=== PATIENT | male | born 2000 | race Caucasian/White ===

== ENCOUNTER 2023-08-21 08:54 | Emergency (ER) | payer OTHER, SELFPAY ==
[2023-08-21 09:06] VITALS: BP 139/83; PULSE 86; RESP 18; TEMP 36.7; O2SAT 99; BMI 29.0
[2023-08-21 09:43] LABS: Add Manual Diff / Slide Review NO; Basophils Absolute Auto 100 /uL (0-100); Basophils Percent Auto 1.1 % (0-2); Eosinophils Absolute Auto 400 /uL (0-450); Eosinophils Percent Auto 4.7 % (2-4); Hematocrit 44.9 % (41-53); Hemoglobin 15.3 g/dL (13.5-17.5); Lymphocytes Absolute Auto 3000 /uL (1100-4500); Lymphocytes Percent Auto 31.9 % (25-40); Mean Corpuscular Hemoglobin 30.8 PG (26-34); Mean Corpuscular Volume 90.5 fL (80-100); Monocytes Absolute Auto 600 /uL (0-900); Monocytes Percent Auto 6.3 % (3-14); Neutrophils Absolute Auto 5300 /uL (1500-7000); Platelet Count 324 X10^3/uL (150-400); Red Blood Cell Count 4.96 X10^6/uL (4.5-5.9); Red Cell Distribution Width 13.2 % (11.6-14.8); White Blood Cell Count 9.4 X10^3/uL (4.5-11.0)
[2023-08-21 09:46] LABS: UR Morphine/Opiate cutoff 300 Negative (Negative); Ur Creatinine Normal (Normal); Ur Specific Gravity Normal (Normal); Urine Amphetamines Negative (Negative); Urine Barbiturates Negative (Negative); Urine Benzodiazepines Negative (Negative); Urine Cocaine Negative (Negative); Urine MDMA Negative (Negative); Urine Methadone Negative (Negative); Urine Methamphetamines Negative (Negative); Urine Oxycodone Negative (Negative); Urine Phencyclidine Negative (Negative); Urine Tetrahydrocannabinol Negative (Negative); Urine Tricyclic Antidepressant Negative (Negative); Urine pH Normal (Normal)
[2023-08-21 09:50] LABS: Acetaminophen < 10 ug/mL (10-30); Alanine Aminotransferase 26 IU/L (<50); Albumin 4.7 g/dL (3.5-5.0); Albumin Globulin Ratio 1.3 (1.0-2.8); Alkaline Phosphatase 92 U/L (38-126); Aspartate Aminotransferase 28 IU/L (17-59); BUN Creatinine Ratio 14.5 (6-22); Bilirubin Total 0.7 mg/dL (0.2-1.3); Blood Urea Nitrogen 12 mg/dL (9-20); Calcium 9.1 mg/dL (8.4-10.2); Carbon Dioxide 28 mmol/L (22-32); Chloride 104 mmol/L (98-107); Estimated Glomerular Filt Rate > 60 mL/min (>60); Ethanol (ETOH) < 10 mg/dL; Globulin 3.6 g/dL (1.7-4.1); Glucose 107 mg/dL (70-100); HEMOLYSIS < 15 (0-50); Potassium 3.7 mmol/L (3.4-5.1); Salicylate < 1.0 mg/dL (<20); Sodium 139 mmol/L (137-145); Total Protein 8.3 g/dL (6.3-8.2)
--- NOTE | 2023-08-21 10:01 | ED_ITS ---
HPI - Psych General Chief Complaint: Psychiatric Symptoms Stated Complaint: SI Time Seen by Provider: 08/21/23 09:24 Source: patient Mode of arrival: Family Vehicle Limitations: no limitations History of Present Illness HPI Narrative: Patient is a 23-year-old male. A prior diagnosis of ADD. Takes no medications. Does not see a counselor. Does not see a therapist. Denies any alcohol use. Denies any illicit substances use. 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 Stationed at [employer] [facility]. This is his 1st duty station. Lives in the [facility]. Is here in the emergency department with his chief for evaluation of suicidal ideation. Patient states he has been dealing with off and on suicidal ideation for several months. States he was never talked with anyone about it. Has never acted on anything. States last evening the thoughts became more intense. He can not give a specific reason why this happened. He [place] the [place] crisis line. He was doing this through text. He did make comments about wanting to go out [place] the [place] and shoot himself. He does have a gun. He states he was researching the type of bullet that he should use to do this. He states he would never do it in the [facility] because he did not want to cause any distress to his roommate. While he was in contact with the crisis line the [place] police department arrived and stayed with him until his command came and picked him up and brought him here in the emergency department. He has never been admitted to the hospital in the past for these thoughts. He states that he currently is not suicidal but does state that these thoughts do seem to come and go. He was worried about having to be at work in a couple hours. Related Data Allergies Allergy/AdvReac Type Severity Reaction Status Date / Time No Known Drug Allergies Allergy Verified 08/21/23 09:06 Review of Systems Review of Systems Narrative: See HPI Patient History Social History Smoking Status: Current every day smoker Smoking Status: Current every day smoker tobacco type: vaping alcohol intake frequency: 0-2 drinks per day Alcohol type: beer Substance Use Type: does not use Exam Initial Vital Signs Initial Vital Signs: Vital Signs Temperature 98.0 F 08/21/23 09:06 Pulse Rate 86 08/21/23 09:06 Respiratory Rate 18 08/21/23 09:06 Blood Pressure 139/83 08/21/23 09:06 Pulse Oximetry 99 08/21/23 09:06 Oxygen Delivery Method Room Air 08/21/23 09:06 Const General: cooperative, comfortable and No ill appearing HENMT Head: normal to inspection and normocephalic Resp Effort & Inspection: normal respiratory effort Auscultation: clear to auscultation bilaterally Cardio Rate: regular rate Rhythm: regular rhythm GI Inspection: normal to inspection Neuro General: patient alert, patient awake and moves all extremities Extrem General: capillary refill normal Psych Other: Patient was calm and cooperative. Is not suicidal currently but did have very strong thoughts last evening. He states they do come on and off without much warning. He did have a plan last evening. He does have access to guns. Course Orders Ordered: ED Orders 08/21/23 09:17 Consult to [facility] - [facility] Lister Stat 08/21/23 09:27 Urine Drug Screen, Rapid Stat 08/21/23 09:30 Acetaminophen Stat Complete Blood Count AUTO DIFF Stat Comprehensive Metabolic Panel Stat Ethanol (ETOH) Stat Free T4, Direct Thyroxine Stat Salicylate Stat Thyroid Stimulating Hormone Stat 08/21/23 11:40 COVID19 -Nasal RAPID Stat Discontinued Medications Nicotine (Nicotine 14 Patch) 14 mg TOP NOW ONE Stop: 08/21/23 13:25 Last Admin: 08/21/23 13:34 Dose: 14 mg Documented By: FLOYD Vital Signs Vital signs: Vital Signs - 8 hr 08/21/23 09:06 08/21/23 14:25 Temperature 98.0 F Pulse Rate 86 78 Respiratory Rate 18 14 Blood Pressure 139/83 130/71 Pulse Oximetry 99 98 Oxygen Delivery Method Room Air MDM - Psych Lab Data 08/21/23 09:30 08/21/23 09:30 Labs: Lab Results 08/21/23 08/21/23 08/21/23 Range/Units 09:27 09:30 11:40 WBC 9.4 (4.5-11.0) X10^3/uL RBC 4.96 (4.5-5.9) X10^6/uL Hgb 15.3 (13.5-17.5) g/dL Hct 44.9 (41-53) % MCV 90.5 (80-100) fL MCH 30.8 (26-34) PG MCHC 34.0 (30-36) % RDW 13.2 (11.6-14.8) % Plt Count 324 (150-400) X10^3/uL Neut % (Auto) 56.0 (50-75) % Lymph % (Auto) 31.9 (25-40) % [place] % (Auto) 6.3 (3-14) % Eos % (Auto) 4.7 H (2-4) % Baso % (Auto) 1.1 (0-2) % Neut # (Auto) 5300 (2540-6590) /uL Lymph # (Auto) 3000 (9249-1479) /uL [place] # (Auto) 600 (0-900) /uL Eos # (Auto) 400 (0-450) /uL Baso # (Auto) 100 (0-100) /uL Sodium 139 (137-145) mmol/L Potassium 3.7 (3.4-5.1) mmol/L Chloride 104 (98-107) mmol/L Carbon Dioxide 28 (22-32) mmol/L BUN 12 (9-20) mg/dL Creatinine 0.83 (0.66-1.25) mg/dL Estimated GFR > 60 (>60) mL/min BUN/Creatinine Ratio 14.5 (6-22) Glucose 107 H (70-100) mg/dL Calcium 9.1 (8.4-10.2) mg/dL Total Bilirubin 0.7 (0.2-1.3) mg/dL AST 28 (17-59) IU/L ALT 26 (<50) IU/L Alkaline Phosphatase 92 (38-126) U/L Total Protein 8.3 H (6.3-8.2) g/dL Albumin 4.7 (3.5-5.0) g/dL Globulin 3.6 (1.7-4.1) g/dL Albumin/Globulin Ratio 1.3 (1.0-2.8) TSH 3.54 (0.47-4.68) uIU/mL Free T4 1.20 (0.78-2.19) ng/dL Salicylates < 1.0 (<20) mg/dL U Opiates 300ng/mL cut Negative (Negative) Ur Oxycodone Screen Negative (Negative) Urine Methadone Screen Negative (Negative) Acetaminophen < 10 (10-30) ug/mL Ur Barbiturates Screen Negative (Negative) U Tricyclic Antidepress Negative (Negative) Ur Phencyclidine Scrn Negative (Negative) Ur Amphetamines Screen Negative (Negative) U Methamphetamines Scrn Negative (Negative) Ur MDMA Scrn (Ecstasy) Negative (Negative) U Benzodiazepines Scrn Negative (Negative) Urine Cocaine Screen Negative (Negative) U Marijuana (THC) Screen Negative (Negative) Urine pH Normal (Normal) Urine Specific [place] Normal (Normal) Ethyl Alcohol < 10 ( - 10) mg/dL Ur Creatinine Normal (Normal) SARS-CoV-2 (PCR) Negative (Negative) Urine Dip Bedside Urine Glucose Negative Bedside Urine Bilirubin - Negative Bedside Urine Ketone - Negative Urine Specific [place] 1.020 Bedside Urine Occult Blood - Negative Bedside Urine pH 6.0 Bedside Urine Protein - Negative Bedside Urine Urobilinogen - Negative Bedside Urine Nitrite - Negative Bedside Urine Leukocytes - Negative Esterase MDM Narrative Medical decision making narrative: Patient is medically cleared. Patient is calm and cooperative. He was here with his command. He was not suicidal this morning but was suicidal last evening. He was put extensive thought into how he would kill himself even to the point of researching what bullet he should use in order to shoot himself in the head in order to be the most successful. Patient is reluctantly voluntary but is okay with a transfer. Has been seen by social work. Patient is stable for transport. I did discuss the case with Dr. Case who is the mental health provider and accepting provider at [facility]. Discharge Plan Departure Patient Disposition: Xfer Psychiatric Hosp Clinical Impression: Suicidal ideation Referrals: *Temp,ED* [Primary Care Provider] -
[2023-08-21 10:39] LABS: Thyroid Stimulating Hormone 3.54 uIU/mL (0.47-4.68)
[2023-08-21 12:00] LABS: COVID19 -Nasal RAPID Negative (Negative)
--- NOTE | 2023-08-21 12:04 | PC.NURSE ---
Patient is calm and cooperative; currently talking with SW.
--- NOTE | 2023-08-21 13:05 | CM.SWNOTE ---
CLIENT ARCHITECT Assessment CLIENT ARCHITECT - Pocketed Spring Assembler Assessment CLIENT ARCHITECT/Pocketed Spring Assembler Assessment Time Spent with Patient Start date 08/21/23 Visit Start Time 12:00 End date 08/21/23 Visit End Time 12:30 Total time Care Management spent on 30 minutes patient visit-in minutes Mental Health Screening Include Onset, Duration, Intensity Presenting Problem Patient presents to ED via [facility] chiefs after calling the crisis line and police showing up at his house. Patient states he thought that what he told them was confidential. Patient presents to the ED with SI and thoughts of plan. Patient denies current SI, patient has been experiencing SI on and off over the last few years with thoughts of plans to use his gun and go out [place] the [place] to shoot himself, patient had planned out which bullets to use and states it would be easy to get his gun and shoot self off base. Precipitating Event(s) Patient endorses that work has been stressful, he believes he has not been doing his best at work. Patient states he has been experiencing on and off SI and Depression for the last several years and during his previous Command in [place] he was seen by outpatient mental health and prescribed a trial of Guanfacine that really helped him. Patient states he does not talk to anyone about his feelings and has not been seen by anyone since being on base at [facility] or been on any prescriptions. Patient Strengths Patient is voluntary seeking treatment for inpt and outpatient afterwards. Current Behavioral Health Provider(s) No current provider, no Include Facility, Provider, Ph. # current rx. [place]. Psych. Hx Mental Health and Chemical Patient was diagnosed with ADD Dependency , not currently medicated, patient endorses SI, hx of suicide attempt, Depression, social anxiety and hx of trauma. Patient states that he drinks a few shot of whiskey a few times a week after work. Patient denies other substances. Family Hx of Behavioral Abuse Patient states he was removed from his parents care by CPS when he was a child and had to move around a lot. Patient states he has a good relationship with his current adoptive parents. Patient states that he gets upset when thinks about the different upbringing him and his brother had. Psychiatric Hospitalizations (date(s)/ No hx location) Psychosocial information & Support Patient is 23 y/o male who Systems lives on the [facility] in [place]. Patient denies local supports or friends, patient states he sometimes talks to his parents via phone. 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 Legal Concerns Legal Matters - Outstanding Issues None reported Mental Status Orientation (Person/Place/Time) A/Ox4 Stated Mood okay Affect (Congruent with Mood?) euthymic, anxious at times, full range, congruent with mood. Thought Content - Specify/Describe Patient denies visual or Obsessions, Delusions, Hallucinations auditory hallucinations and denies paranoia. Thought Processes (Xqdximc-Oalwisqc-Mden coherent Apqmmlvw-Meyvztji-Kvhlygfjil- Bnpwxgzwwumhod-Krmlwhn-Cgneenmkjhss- Thought Blocking) Speech (Rwhell-Fupq-Eqocxxk-Rapid-Soft- normal Loud-Pressured) Motor (Zzfwdd-Zsgpombej-Xlpf-Other) normal Insight (Ijdn-Humf-Igah/Limited) fair/limited Judgement (Wrah-Wohr-Eefa/Limited) fair Impulse Control (Adequate-Impaired) adequate Memory (Kihlgjjje-Ngdpzy-Pbcpst, intact, not formally assessed Impaired-Intact) Concentration (Intact-Impaired) intact Attention (Intact-Impaired) intact Behavior (Appropriate-Inappropriate) appropriate Additional Comment patient presents as calm, cooperative and communicative. Risk Assessment Suicidal Ideation (Plan) Yes Homicidal Ideation (Plan) No Comment Patient endorses hx of SI for the last few years. Patient denies current SI, but last night patient had thoughts and plans to go get his gun from the armory, get specific bullets and to shoot self in the [place], patient states it would be easy to do this. Patient endorses hx of these thoughts and hx of holding his shot gun up to his head without bullets in it. Patient endorses hx of trying to choke self with a rope. Intervention Intervention CLIENT ARCHITECT meets with patient. Patient endorses hx of SI, increasing SI with thoughts of specific plan. Patient denies current SI and feels safe in the hospital. Patient feels betrayed that [facility] and [facility] showed up at his house and it was some of the people he works with. Patient thought that he would be communicating confidentially about his SI and then it led to patient being brought to the ED via chiefs present. Patient endorses hx of SI during A school, [employer] and Sub school in regards to [employer] training and after A school he was provided with mental marlo therapy and he found that to be helpful. Patient states he was been battling with SI for awhile since being stationed in [facility]. Patient states he does not really talk to anyone and sometimes suffers from social anxiety. CLIENT ARCHITECT discusses voluntary inpatient hospitalization and discusses this with patient's chief present and patient indicates agreement and understanding to go to [facility] for inpatient treatment. It is the opinion of this CLIENT ARCHITECT that patient is appropriate for and will benefit from voluntary inpatient hospitalization for safety, crisis stabilization and medication management. CLIENT ARCHITECT reviews the above with ED provider Dr. Mata who indicates agreement and understanding. Plan RA Plan CLIENT ARCHITECT to seek inpatient placement for patient at [facility]. CARLENE Robbins
[2023-08-21] MEDS: NICOTINE 14 PATCH 14 MG TOP (13:34)
--- NOTE | 2023-08-21 13:45 | PC.NURSE ---
patient up to use the restroom. his gate was steady while ambulating. he was calm. his face did not show obvious signs of distress.
[2023-08-21 14:25] VITALS: BP 130/71; PULSE 78; RESP 14; O2SAT 98
--- NOTE | 2023-08-21 16:15 | CM.SWNOTE ---
ED TICKET MACHINE OPERATOR Note One of the chiefs present with patient recommends patient transfer to [facility], concern for patient's consistent talk of thinking about using his gun. Chief states that patient's gun is in the armory and he currently does not have access to gun. Patient is accepted by [facility], accepting provider is Dr. Case. RN-RN ph# [phone]. Plan: Patient to transfer to [facility] via BLS this afternoon, clam picker time of 1610. CARLENE Robbins
[2023-08-21 16:19] VITALS: BP 136/95; PULSE 99; RESP 14; TEMP 36.6; O2SAT 99
[2023-08-21 16:26] VITALS: BP 136/95; PULSE 94; RESP 14; TEMP 36.6; O2SAT 99
== END 2023-08-21 16:28 ==
PROVIDERS: Emergency Provider Emergency Medicine
DX: R45.851 Suicidal ideations (principal); Z11.52 Encounter for screening for COVID-19
CPT/HCPCS: 36415; 80053; 80305; 80320; 80329; 81003; 84439; 84443; 85025; 87635; 99284; G0480